=== PATIENT | male | born 1970 | race Caucasian/White ===

== ENCOUNTER → 2022-04-08 | Outpatient (CLI) | payer BC | END | disposition home or self-care (01) | LOC: LABPAT 10:05 | PROVIDERS: ATTEND Orthopaedic Surgery | DX: Z01.812 Encounter for preprocedural laboratory examination (principal); Z22.322 Carrier or suspected carrier of Methicillin resistant Staphylococcus aureus; M47.812 Spondylosis without myelopathy or radiculopathy, cervical region; M48.02 Spinal stenosis, cervical region | CPT/HCPCS: 87070 ==

== ENCOUNTER 2022-04-16 09:59 | Day surgery (SDC) | payer BC ==
[2022-04-13 10:29] VITALS: BMI 24.3
--- NOTE | 2022-04-16 08:47 | P.HPOR ---
History of Present Illness H&P Date: 04/08/22 . .T:Title: [facility] History and Physical Date of :[birth year] Age: 51 year Height: 5'10" Weight: 170 lbs BMI: 24.39 kg/m2 Occupation: [employer] VAS: 3 CHIEF COMPLAINT: pre-op recheck of planned C4-C7 ACDF DOI:Chronic DOS: N/A Duration of current treatment regiment: 8 months HISTORY: Xrays none Trauma or injury No Work-Related No Pain description aching. Location posterior posterior Patient notes that their pain radiates to bilateral upper extremities Activity Modification Yes Hand Dominance right TREATMENTS COMPLETED: 6 weeks of PT completed? Month and Year of last PT date? None recent No Chiropractor provides traction x2 weekly, with slight relief Physician recommended home exercise completed? Duration of HEP course: yes Patient has trialed the physician directed home exercise program for (with/without) relief of their symptoms. Medications yes List: Motrin 800mg. and Celebrex Alternative interventions Chiropractic: yes since June 2021 Massage therapy: No R.I.C.E: yes Brace: No Injections Yes How many? 1 Did they help? yes slight relief RFA: No SUBJECTIVE: Mr. Mccord returns to the office for a pre-operative recheck of their planned C4-C7 ACDF. Patient reports no improvements to his symptoms since the time of the last appointment. The patient continues to complain of sharp, burning cervical pain radiating into the bilateral upper extremities (left worse than right). With this he does also continue to complain of numbness and tingling about the bilateral arms. Overall the patient has seen a progressive increase in symptoms since their onset. Mr. Mccord symptoms are exacerbated with prolonged standing, ambulation, flexion/extension/twisting of the neck, along with use of the bilateral arms, due to this they notes that it is increasingly difficult for Mr. Mccord to complete many of their daily tasks. Patient is having severe sleep disturbances as well due to their ongoing pain and associated symptoms. Regarding treatments, the patient has previously trialed all abovementioned treatment modalities without relief of his symptoms. Patient denies trialing any other modalities at this time. Otherwise the patient denies any f/c/sob/cp, no bladder or bowel retention/incontinence, no perineal numbness/tingling, and ambulates independently. HISTORY: Mr. Collazo last presented to the office on 02/05/2022 for cervical pain. Patient reports an aching cervical pain ongoing for 1 year. In addition to their cervical pain, they do report that it radiates into the bilateral upper extremities, associated with numbness and tingling through the arms. Overall the patient has seen a progressive increase in symptoms since their onset. Mr. Collazo symptoms are exacerbated with turning his head and heavy lifting, due to this they notes that it is increasingly difficult for Mr. Collazo to complete many of their daily tasks. Patient is having severe sleep disturbances as well due to their ongoing pain and associated symptoms.Patient states he has seen Dr. Tejeda and received an NICO injection approximately 3 weeks ago with slight relief in the left upper extremity but now has worsened in the right upper extremity. Patient does trial chiropractic therapy which provides traction twice a week with relief since June 2021. Patient denies trialing any other modalities at this time. For their symptoms, the patient has been taking Celebrex and Motrin 800mg. Otherwise the patient denies any f/c/sob/cp, no incision concerns, no bladder or bowel retention/incontinence, no perineal numbness/tingling, and ambulates independently. Mr. Collazo was last seen on 01-14-2022 regarding his cervical pain. He states this has been ongoing for approximately one year. He describes a dull ache neck pain that radiates into the bilateral upper extremities. Patient states with certain movements he feels he gets an "electric shock" into left upper extremity. Patient does have complaint of numbness and tingling into bilateral upper extremities. Patient reports 50% of strength loss in the left upper extremity and 10% in the right upper extremity. Patient denies any fine motor function issues. He has complaint of severe sleep disturbances. Patient states he has seen Dr. Tejeda and received an NICO injection approximately 3 weeks ago with slight relief in the left upper extremity but now has worsened in the right upper extremity. Patient does trial chiropractic therapy which provides traction twice a week with relief. He states he is currently taking Celebrex with moderate relief. Patient denies any f/c/sob/cp and ambulates independently. The patients' past social, medical, family, surgical history, as well as review of systems, have been reviewed. Please refer to the Neurosurgery History and Physical form that has been scanned in to our electronic medical record system. 16 points review of systems completed and as stated in HPI, all other systems reviewed are negative. Social History: Reviewed, see appropriate section of the chart for details. P3 Social History: Smoking: current smoker P3 Smoking Amount: 1/2 PPD Alcohol: socially drinks alcohol Alcohol Amount: 10-14 drinks/wk P3 Family History: Reviewed, see appropriate section of the chart for details. P2 Past Medical History: Reviewed, see appropriate section of the chart for details. [id number] Medications: Rx: Air Protector Ref: 0 Rx: atenoloL Ref: 0 Rx: Trelegy Ellipta Ref: 0 P1 PHYSICAL EXAMINATION: General: Awake, alert, appropriate for age, in no acute distress. HEENT: No unusual neck masses around region of lateral neck triangle, thyroid, supraclavicular groove Heart: Regular rate and rhythm, normal S1, S2 and no murmur/gallop. Lungs: Clear to auscultation bilaterally with no use of accessory muscles. Extremities: Skin warm and dry without acute lesions, coloration, temperature, skin intact, no tenderness or erythema Atrophy present. Integument: Hairy patches: ABSENT Dorsal skin dimples: ABSENT Cafe au lait spots: ABSENT Surgical incisions: NONE Palpation: Please see Pain drawing on Intake sheet for further detail. Midline spinal tenderness: No E6 Cervical Tenderness: No E6 Paralumbar tenderness: No E6 Parathoracic tenderness: No E6 Buttocks tenderness: No E6 Sacroiliac Tenderness: No POSTURAL and MUSCULO-SKELETAL EVALUATION: Coronal Balance: NEUTRAL Recumbent testing: Patient is able to lay flat on back Sagittal Balance: NEUTRAL Shoulder Profile: LEVEL Pelvic Girdle: LEVEL Neck ROM: RESTRICTED Lumbar ROM: UNRESTRICTED Shoulder ROM: Symmetrical Hip ROM: Symmetrical Knee ROM: Symmetrical Hands: Normal appearance, symmetrical Feet: Normal appearance, Symmetrical VASCULAR STATUS : LEFT RIGHT Wrist Pulses INTACT INTACT Pedal Pulses (Dors. pedis & post.tibialis) INTACT INTACT Color NORMAL NORMAL Edema Absent Absent NEUROLOGIC EXAMINATION: Mental Status:Awake and alert, fully oriented, with normal attention, concentration and memory, and fluent, appropriate speech. Cranial Nerves: I: Olfactory not tested. II: Visual acuity normal, no visual field deficit noted with confrontation. III,IV: Normal pupillary reflexes & intact extraocular movements without nystagmus. V,: Intact symmetrical facial sensation. VII: Intact symmetrical facial motor movement VIII: Hearing intact. IX,X: Intact gag, swallow, & normal voice. XI: Sternocleidomastoid, trapezius function intact. XII: Tongue midline with normal movements. L'hermitte's Sign: Negative / absent Spurling'Sign: Absent bilaterally. Cubital percussion test: Absent bilaterally. Hinds-Tinel sign - Carpal region: present left side Straight Leg Raising: Absent bilaterally. 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 Sensory system (0-4, N/T) Test type RU YUNG RL LL Joint-Position 2 2 2 2 Vibration 2 2 2 2 Pain & LT sense 2 2 2 2 Dermatomal Deficit: None C4-C6 None None Gait and Functional Evaluation: Ambulatory aids: Independent Romberg's test: Intact bilaterally Toe heel walk / heel-toe walk intact while maintaining satisfactory balance? yes Squatting/straightening w/o assistance to a min of 60 degree knee flexion? yes Single leg stance: intact Trendelenburg sign negative bilaterally Hand and finger dexterity intact bilaterally? yes Disdiadochokinesis examination negative bilaterally? yes RADIOGRAPHIC STUDIES: XRay multiview taken on 01/14/22 at [facility] of Cervical Spine: cervical spinal alignment appears normal. Spondylitic changes noted C4-C6 with stenosis. Vertebral body heights are preserved. Multilevel diminished disc h eight. No acute osseous abnormalities. CT scan without contrast from 03/26/2022 from [facility] of the cervical spine: images are reviewed with patient and demonstrate severe spondylotic changes from C4-7 with disc collapse, anterior osteophyte changes as well as facet arthrosis. There is moderate stenosis with posterior osteophyte complex at C5-6. No acute fractues. Flattening of the normal cervical lordosis. MRI scan from10/25/[address] [facility] of cervical Spine: Impression: 1. moderate neurodegenerative spondylitic changes as detailed. 2. In specific, there is a multilevel neural foramina compromise as detailed. 3. Neural foraminal narrowing graded as moderate to severe bilaterally at C5- C6. Mild acquired central spinal stenosis at C5-C6. 4. Tonsillar ectopia. 5. Degenerative disc disease. Bone marrow edema involving C4. Nonspecific. Could correlate with CT imaging. IMPRESSION: It was my pleasure to have seen and examined Bossman. I reviewed the patient's clinical syndrome, physical findings, and imaging studies during the appointment today. It is my impression that the patient has a diagnosis of. 1. C4-C6 spondylosis with stenosis 2. left lower extremity radicular pain/right lower extremity radicular pain 3. mechanical neck pain 4. bilateral upper extremity radiculopathy 5. left upper extremity parasthesias I outlined the natural course history without intervention and various interventional options. PLAN: Based on my findings I suggest the following course of action: -I recommended that the patient get a CT scan of the cervical neck at [facility]. -I discussed treatment options with the patient, including operative and non- operative options, and they have elected to proceed with the following surgical procedure: cervical C5-C7 ACDF The indications, risks, benefits, and alternatives to surgery were discussed with the patient and family at length. Specifically (but not limited to) the risks of infection, stiffness, recurrence of symptoms, need for revision surgery, local numbness, neurovascular injury, and blood clots were discussed. The patient's questions were answered. The decision to proceed was made. Consent will be obtained for the procedure. -A new prescription was given for Motrin 800mg. and Celebrex. -Ambulate daily -Take medications as directed -Ice and rest for pain and swelling control. Spine Surgery Risk Review Mr. Collazo is presenting for evaluation of cervical pain. It was my pleasure to have seen and examined Mr. Collazo. In our visit today we have had a chance to go over subjective complaints, physical examination findings and treatments including the natural course history without intervention and various interventional options. The patients imaging demonstrates: XRay multiview taken on 01/14/22 at [facility] of Cervical Spine: cervical spinal alignment appears normal. Spondylitic changes noted C4-C6 with stenosis. Vertebral body heights are preserved. Multilevel diminished disc height. No acute osseous abnormalities. CT scan without contrast from 03/26/2022 from [facility] of the cervical spine: images are reviewed with patient and demonstrate severe spondylotic changes from C4-7 with disc collapse, anterior osteophyte changes as well as facet arthrosis. There is moderate stenosis with posterior osteophyte complex at C5-6. No acute fractues. Flattening of the normal cervical lordosis MRI scan from10/25/[address] [facility] of cervical Spine: Impression: 1. moderate neurodegenerative spondylitic changes as detailed. 2. In specific, there is a multilevel neural foramina compromise as detailed. 3. Neural foraminal narrowing graded as moderate to severe bilaterally at C5- C6. Mild acquired central spinal stenosis at C5-C6. 4. Tonsillar ectopia. 5. Degenerative disc disease. Bone marrow edema involving C4. Nonspecific. Could correlate with CT imaging. On physical exam, Mr. Collazo demonstrates severely restricted cervical ROM with left upper extremity radiculopathy and weakness. Patient does also demonstrate significant left upper extremity muscle wasting and atrophy. I have explained to the patient that as their condition progresses it will cause further neurological deficits and eventual paralysis. Based on the patients imaging, physical exam, and the rapid progression and disabling nature of their symptoms, at this time I recommend surgery in the form or a: C4-C7 ACDF. I discussed the risk and benefits of this procedure at length with Mr. Collazo . The patient agreed to considered pursuing the procedure abovementioned. Prior to surgery, she should follow up with her PCP (Cardio, ID, IM etc) for clearance. Questions were invited and answered, and the patient wishes to proceed as outlined below. Currently, I am recommendin.C4-C7 ACDF 2.Follow up with PCP for surgical clearance 3.Review of surgical risks and benefits as well as an educational packet on the proposed surgical procedure. Risks: All surgical procedures come with inherent risks, including those related to positioning, anesthesia, intraoperative findings, and postoperative complications. It is important to understand that surgery does not come with an y guarantee of a successful outcome as complications and adverse events are always possible. The patient was given a handout in office today discussing the surgical procedure and risks associated with the intervention, both of which were discussed with the patient. These risks include but are not limited to the following: * Experiencing same, different or even worse symptoms in back, neck, arms, or legs compared to before surgery. Requiring further surgery or other forms of treatment presently or at some time in the future at same or other levels of the intended spine surgery. On an extreme but fortunately relatively rare basis severe complication such as blindness, stroke, heart attack, temporary and/or permanent nerve injury, paralysis, coma, or may occur, sometimes without known explanation. Surgical complications may include but are not limited to risk of infection, fluid accumulation in the surgical dissection site, including a seroma or hematoma, that requires additional surgery, wound drainage, bleeding, new numbness or weakness, vision changes/loss, spinal fluid leakage, non-healing and/or infected incision, headaches, difficulty or inability to swallow, hoarseness, hemopneumothorax, pneumothorax, impotence, retrograde ejaculation, vaginal dryness; injury to nerves, spinal cord, blood vessels, lymphatics or other vital organs (i.e., bowel injury, injury to the great vessels); heterotopic bone formation; complications related to the hardware such as screws, rods, cages including misplaced hardware, device failure, instrumentation at the wrong spine level, hardware fracture/breakage, or hardware loosening; vertebral failure of the spinal column above or below the newly placed hardware; retained surgical instrumentations or devices and the need for further surgery. * Medical risks of the planned spine surgery include but are not limited to generalized Infections to the whole body or local areas outside of the surgical site (sepsis), heart attack, bleeding, anaphylaxis, meningitis, seizure, epilepsy, hearing loss, burn lopez, laceration of the head or other areas of the body, bruising, hypersensitivity of the skin, bladder over distension; allergic reaction; shoulder injury related to positioning; fat, blood and air clots to other areas of the body like heart, lungs, brain; failure of internal organs such as lungs, kidneys, liver and excessive bleeding. If blood transfusions are necessary, note that transfusions may cause intolerance reactions such as anaphylaxis or other complex reactions. Despite best efforts, the results of spine surgery might not heal in terms of bone, soft tissues such as skin, fascia, ligaments, and joints. Additionally, in order to achieve best possible results, spine surgery may be carried out beyond the initially planned levels and involve decompression, fusion including insertion of hardware at levels other than the original intended area of surgical interest change some portions of the procedure in order to ensure the best possible outcomes. With spine surgery and spinal fusion, there are different off label uses of instrumentation (devices, implants and hardware) as well as biological substances (bone morphogenic proteins, demineralized bone matrix) as well as using extra bone from allograft sources (i.e. cadaver bone) or autograft (iliac crest bone, ribs, or the spine itself). The patient has been given information about these practices and their inherent risks and benefits. [facility] is an educational center that serves as a training facility for neurosurgical and orthopedic CYBER SYSTEMS ENGINEER and Nursing students. Physician assistants are medically trained surgical providers who function in the outpatient, inpatient, and operating room setting under the direct supervision of the attending surgeon. [facility] has multiple operating rooms with single and overlapping rooms running daily. They currently function under the required guidelines as produced by the [facility] Finance Committee with regards to the overlapping rooms and will continue to comply with changes to this policy as they occur. The requirements include and are complied with as follows: (1) the critical portions of the overlapping rooms will not occur at the same time, (2) the attending physician will be physically present during the critical portions of the procedure and immediately available during the entire case, and (3) a back-up attending is designated should the primary attending not be immediately available. The patient has had a chance to review all the listed information, has been given print outs detailing this information, and has had all his/her questions answered to their satisfaction. It was my pleasure to have seen and examined Mr. Collazo. In our visit today we have had a chance to go over my understanding of our patient's current condition, the natural course history without intervention and various interventional options. Questions were invited and answered, and the patient wishes to proceed as outlined above. I have seen and examined the patient for 25 minutes and we have spent more than 50% of the time in repeat and detailed coun seling about the patient's condition, its natural course history with out and as much as can be predicted with surgery and re-review of various surgical treatment options. In conclusion, Mr. Collazo requested we proceed with the above suggested surgery and are willing to accept risks and limitations of the suggested surgery as nature of the disease process and our best attempts at treatment for the condition. Thank you again for allowing us to be part of your patient's care. Please don't hesitate to contact me if you have any further questions. Signed and authenticated by: Venkatesh Campbell DO [facility] Complex and Minimally Invasive Spine Surgery [address] [place] [address] Follow-up: 2 weeks post-op Patient Education: (Informational booklet, instructions, etc) given at today's appointment: Yes .ED:Patient Education: Y Plan at next visit: Medications Reviewed: YES In our visit today Mr. Collazo and I have had a chance to go over my understanding of the patient's current condition, the natural course history without intervention and various interventional options. Questions were invited and answered, and the patient wishes to proceed as outlined above. I will be sure to keep you updated afterMr. Collazo returns here for further follow-up. Thank you again for your referral. Please do not hesitate to contact me if you have any further questions. Signed and authenticated by: Venkatesh Ordoñez [facility] Complex and [facility]imally Invasive Spine Surgery [address] [place] [address] This message is confidential, intended only for the named recipient(s) and may contain information that is privileged or exempt from disclosure under applicable law. If you are not the intended recipient(s), you are notified that the dissemination, distribution or copying of this information is strictly prohibited. If you received this message in error, please notify the sender then delete this message. Patient verbalizes understanding of the information discussed. The above note was initiated by Venkatesh Barbosa, physician recording social and human services assistant for Dr. Venkatesh Campbell. This note has been reviewed by Dr. Campbell, who has made his personal changes and impressions for this document. CC: Dr. Salmon # SIGNED BY Venkatesh Campbell (GOO)04/15/2022 01:41PM Past Medical History Past Medical History: Asthma, Hyperlipidemia, Hypertension History of Any Multi-Drug Resistant Organisms: None Reported Past Surgical History: Orthopedic Surgery, Tonsillectomy Additional Past Surgical History / Comment(s): BILAT SHOULDER SX. RT KNEE SX. COLONOSCOPY Past Anesthesia/Blood Transfusion Reactions: No Reported Reaction Smoking Status: Current every day smoker - Past Family History Father Family Medical History: Cancer Medications and Allergies Home Medications Medication Instructions Recorded Confirmed Type Atenolol/Chlorthalidone 1 each PO DAILY 04/13/22 04/13/22 History [Atenolol-Chlorthalidone 100-25] Atorvastatin [Lipitor] 20 mg PO DAILY 04/13/22 04/13/22 History Fluticasone/Umeclidin/Vilanter 1 inhalation INHALATION DAILY 04/13/22 04/13/22 History [Trelegy Ellipta 100-62.5-25] Allergies Allergy/AdvReac Type Severity Reaction Status Date / Time No Known Allergies Allergy Verified 04/13/22 10:24 Physical Examination Osteopathic Statement: *. No significant issues noted on an osteopathic structural exam other than those noted in the History and Physical/Consult.
[~2022-04-16 09:59] MED LIST: ACETAMINOPHEN TAB 500 MG TAB PO PRN; GABAPENTIN 300 MG CAP PO PRN; ONDANSETRON 4 MG/2 ML VIAL IVP PRN; TRANEXAMIC ACID IN NACL,ISO-OS 1,000 MG in SALINE 1 100ML.BAG IVPB PRN
[2022-04-16] MEDS ORDERED: LIDOCAINE 1% (10MG/ML) FOR IV START INTRADERMA PRN (10:10)
[2022-04-16] MEDS ORDERED: DEXAMETHASONE SOD PHOSPHATE 4 MG/ML 1 ML VIAL IV ONE (10:10)
[2022-04-16] MEDS ORDERED: ONDANSETRON 4 MG/2 ML VIAL IVP ONE (10:10)
[2022-04-16] MEDS ORDERED: MIDAZOLAM 2 MG/2 ML VIAL IV PRN (10:10)
[2022-04-16] MEDS ORDERED: HYDROmorphone 0.5 MG/0.5 ML SYRINGE IVP PRN ×2 (10:10→15:31)
[2022-04-16 10:33] VITALS: RESP 16
[2022-04-16] MEDS: LACTATED RINGERS 1,000 ML IV SCH (10:50)
[2022-04-16] MEDS ORDERED: TRANEXAMIC ACID IN NACL,ISO-OS 1,000 MG/100 ML BAG ONE (12:37)
[2022-04-16] MEDS ORDERED: KETAMINE 10 MG/ML 20 ML VIAL ONE (12:37)
[2022-04-16] MEDS ORDERED: MIDAZOLAM 2 MG/2 ML VIAL ONE (12:37)
[2022-04-16] MEDS ORDERED: fentaNYL (PF) 50 MCG/ML 2 ML AMP ONE (12:37)
[2022-04-16] MEDS ORDERED: PROPOFOL 10 MG/ML 20 ML VIAL IV ONE (12:37)
[2022-04-16] MEDS ORDERED: LIDOCAINE 2% INJ 20 MG/ML (2 ML VIAL) ONE (12:37)
[2022-04-16] MEDS ORDERED: SUCCINYLCHOLINE CHLORIDE 200 MG/10 ML VIAL IV ONE (12:37)
[2022-04-16] MEDS ORDERED: GELATIN SPONGE,ABSORB (LARGE) 1 EACH SPONGE MISCELLANE ONE (13:22)
[2022-04-16] MEDS ORDERED: THROMBIN (BOVINE) 5,000 UNIT VIAL MISCELLANE ONE (13:22)
[2022-04-16] MEDS ORDERED: LACTATED RINGERS 1,000 ML IV ONE ×3 (14:53→15:44)
[2022-04-16] MEDS ORDERED: ONDANSETRON 4 MG/2 ML VIAL IVP PRN (15:31)
[2022-04-16] MEDS ORDERED: bisacodyL 10 MG SUPP RECTAL PRN (15:31)
[2022-04-16] MEDS ORDERED: MAGNESIUM HYDROXIDE 2,400 MG/10 ML CUP PO PRN (15:31)
[2022-04-16] MEDS ORDERED: HYDROmorphone 1 MG/ML 1 ML SYRINGE IVP PRN (15:31)
[2022-04-16] MEDS ORDERED: SENNOSIDES-DOCUSATE SODIUM 1 EACH TAB PO PRN (15:31)
--- NOTE | 2022-04-16 15:38 | XR ---
Crosstable lateral cervical spine History: CERVICAL FUSION Localization device is at the C4 level inferior endplate
[2022-04-16] MEDS ORDERED: hydrALAZINE HCL 20 MG/ML 1 ML VIAL IVP ONE (16:32)
--- NOTE | 2022-04-16 17:06 | FL ---
EXAMINATION TYPE: FL guidance operating room DATE OF EXAM: 04/16/2022 FLUOROSCOPY Fluoroscopy time of 30 seconds was used during cervical fusion. 7 image/s document/s the procedure.
[2022-04-16] MEDS ORDERED: ACETAMINOPHEN TAB 325 MG TAB PO PRN (18:00)
[2022-04-16] MEDS: HYDROcodone/APAP 10-325MG 1 EACH TAB PO SCH ×3 (18:09→23:56)
[2022-04-16] MEDS: HYDROcodone/APAP 5-325MG 1 EACH TAB PO SCH ×3 (18:09→23:56)
[2022-04-16] MEDS: CYCLOBENZAPRINE 10 MG TAB PO SCH ×2 (18:19→23:56)
[2022-04-16] MEDS: GABAPENTIN 300 MG CAP PO SCH ×2 (18:19→23:56)
[2022-04-16] MEDS: 0.9% NACL WITH KCL 20 MEQ/L 1,000 ML IV SCH (18:19)
[2022-04-17] MEDS ORDERED: BENZOCAINE/MENTHOL LOZENG 1 EACH LOZENGE MUCOUS MEM PRN (02:58)
--- NOTE | 2022-04-17 03:18 | P.CONS ---
History of Present Illness - Reason for Consult Consult date: 04/16/22 post op medical care Requesting physician: Venkatesh Campbell - Chief Complaint scheduled for C-spine surgery - History of Present Illness 51 year old male with hyperlipidemia , hypertension patient presented for scheduled C spine surgery , due to progressive disabling pain with radiculopathy refractory to conservative management, he tolerated procedure well, no observed immediate post op complication, pain well controlled, patient tolerating PO intake , denies chest pain , nausea vomiting, abd pain , SOB. patient admits to daily smoking and social alcohol post operatively , he denies any new onset numbness or weakness in his upper or lower extremity Review of Systems Pertinent positives as noted in HPI. All other systems were reviewed and are negative Past Medical History Past Medical History: Asthma, Hyperlipidemia, Hypertension History of Any Multi-Drug Resistant Organisms: None Reported Past Surgical History: Orthopedic Surgery, Tonsillectomy Additional Past Surgical History / Comment(s): BILAT SHOULDER SX. RT KNEE SX. COLONOSCOPY Past Anesthesia/Blood Transfusion Reactions: No Reported Reaction Smoking Status: Current every day smoker - Past Family History Father Family Medical History: Cancer Medications and Allergies Home Medications Medication Instructions Recorded Confirmed Type Atenolol/Chlorthalidone 1 each PO DAILY 04/13/22 04/16/22 History [Atenolol-Chlorthalidone 100-25] Atorvastatin [Lipitor] 20 mg PO DAILY 04/13/22 04/16/22 History Fluticasone/Umeclidin/Vilanter 1 inhalation INHALATION DAILY 04/13/22 04/16/22 History [Trelegy Ellipta 100-62.5-25] Allergies Allergy/AdvReac Type Severity Reaction Status Date / Time No Known Allergies Allergy Verified 04/16/22 10:27 Physical Exam Vitals: Vital Signs Temp Pulse Pulse Resp BP Pulse Ox 04/16/22 22:54 90 125/73 04/16/22 19:45 16 04/16/22 19:19 97 133/91 04/16/22 18:49 87 147/87 97 04/16/22 18:43 98.1 F 92 16 150/78 96 04/16/22 18:19 150/78 92 L 04/16/22 18:03 89 132/78 93 L 04/16/22 17:48 89 108/56 93 L 04/16/22 17:33 89 127/81 94 L 04/16/22 17:19 91 129/80 93 L 04/16/22 16:57 90 16 138/80 96 04/16/22 16:42 87 16 146/90 95 04/16/22 16:27 78 16 159/104 100 04/16/22 16:12 84 16 143/85 97 04/16/22 15:57 78 16 110/68 93 L 04/16/22 15:42 97.4 F L 77 16 120/76 99 04/16/22 10:30 97.4 F L 80 16 124/94 97 Intake and Output 04/16/22 04/16/22 04/17/22 14:59 22:59 06:59 Intake Total 2049 1240 Output Total 75 Balance 2049 116 Intake: IV 2049 1000 Oral 240 Output: Estimated Blood Loss 75 Other: Voiding Method Indwelling Catheter Weight 76.3 kg Constitutional: No acute distress, conversant, pleasant Eyes: Anicteric sclerae, moist conjunctiva, Pupils equal round reactive to light ENMT: NC/AT Oropharynx clear, no erythema, or exudates Neck: cervical neck collar in place drains in place in the cervical spine surgical site Lungs: Clear to auscultation Clear to percussion Normal respiratory effort, no accessory muscle use Cardiovascular: Heart regular in rate and rhythm, No murmurs, gallops, or rubs No peripheral edema Abdominal: Soft Nontender, no guarding, rebound or rigidity Abdomen moving with respiration Normoactive bowel sounds Skin: Normal temperature, tone, texture, turgor Extremities: No digital cyanosis No clubbing Pedal pulses intact and symmetrical Radial pulses intact and symmetrical No calf tenderness Psychiatric: Alert and oriented to person, place and time Neuro Muscles Strength 5/5 in all 4 extremities Sensation to light touch grossly present throughout Cranial nerves II-XII grossly intact Lymphatics: no palpable cervical or supraclavicular , lymph nodes Assessment and Plan Assessment: hypertension , controlled continue with atenolol hyperlipidemia continue atorvastatin tobacco smoking counseled to quit smoking nicotine replacement therapy C spine surgery POD zero management per ortho full code DVT PPX SCDs follow up AM labs
[2022-04-17] MEDS: HYDROcodone/APAP 5-325MG 1 EACH TAB PO SCH ×3 (03:42→11:24)
[2022-04-17] MEDS: HYDROcodone/APAP 10-325MG 1 EACH TAB PO SCH ×2 (03:42→06:28)
[2022-04-17] MEDS: 0.9% NACL WITH KCL 20 MEQ/L 1,000 ML IV SCH (05:29)
[2022-04-17 05:42] VITALS: BP 158/98; PULSE 81; TEMP 97.7
[2022-04-17] MEDS: CYCLOBENZAPRINE 10 MG TAB PO SCH (06:32)
[2022-04-17] MEDS: GABAPENTIN 300 MG CAP PO SCH (06:32)
[2022-04-17] MEDS: IPRATROPIUM 0.5 MG/2.5 ML NEBU INHALATION SCH ×2 (07:54→11:28)
[2022-04-17] MEDS ORDERED: SYMBICORT 80-4.5 MCG INHALER INHALATION SCH (08:00)
--- NOTE | 2022-04-17 08:53 | P.PN ---
Subjective Progress Note Date: 04/17/22 Principal diagnosis: Cervical spondylosis Cervical stenosis Patient seen and examined at bedside. Patient was resting in bed with soft collar intact. Surgical dressing was changed and NORMAN drain removed. Surgical incision was well approximated with glue intact. Patient reports pain has been managed on current regimen. He denies any numbness or tingling to bilateral upper extremities since procedure. Overall patient is very happy with plan of care. Patient will be discharged home with home care. He currently denies any fever/chills, nausea/vomiting, or chest pain. Objective - Vital Signs Vital signs: Vital Signs Temp 97.7 F 04/17/22 05:00 Pulse 81 04/17/22 05:00 Resp 16 04/17/22 05:00 BP 158/98 04/17/22 05:00 Pulse Ox 94 L 04/17/22 05:00 FiO2 Intake & Output 04/16/22 04/17/22 04/17/22 18:59 06:59 18:59 Intake Total 3050 240 Output Total 75 2215 Balance 2975 -1975 Weight 76.3 kg Intake: IV 3050 Oral 240 Output: Drainage 15 Anterior Neck 15 Urine 2200 Estimated Blood Loss 75 Other: Voiding Method Indwelling Catheter - Exam Physical Examination General: The patient is awake and alert, in no acute distress Skin: Skin is warm and dry with no obvious rashes or lesions. Hairy patches absent, no dorsal skin dimples, no cafe au lait spots. Surgical Incision to anterior cervical region, dressing CDI. Eye: Pupils are equal, round and reactive to light, extra-ocular movements are intact; there is normal conjunctiva bilaterally. Neck: The neck is supple, there is slight tenderness and limited ROM r/t surgical procedure. Cardiovascular: There is a regular rate and rhythm. No murmur, rub or gallop is appreciated. Respiratory: Lungs are clear to auscultation, respirations are non-labored, breath sounds are equal. Gastrointestinal: Soft, non-distended, non-tender abdomen. Back: There is no tenderness to palpation in the midline, paralumbar, parathoracic or buttocks region. There is no obvious deformity . Musculoskeletal: ROM limited secondary to pain and stiffness from surgical proce dure. Muscle strength in all major muscle groups of bilateral upper extremities 4/5, bilateral lower extremities 5/5. Neurological: CN 2-12 intact. There are no obvious motor or sensory deficits. Movement and coordination equal and intact. Sensory exam to light touch intact C5-T1 and intact from L2-S1. Reflexes 2/4 in bilateral upper and lower extremities. Negative Hoffmans, babinski, and clonus signs. Psychiatric: Cooperative, appropriate mood & affect, normal judgment. Assessment and Plan Assessment: Postop day 1: C4-C7 ACDF Plan: Plan: -Appreciate rn lactation consultant and team management. -Activity: Ambulate QID, OOB all meals, up and about, limit lifting bending tw isting to less than 5 lbs. No overhead pushing or pulling. -Daily PT/OT, increase ambulation strength and balance. -Soft collar when up and about, not needed in bed or chair -Pain control: Adequate at this time -Meds: reviewed -GI ppx: senna, Miralax -DC dunbar when up and about, bedside commode if needed -DVT PPX: OK to restart Heparin tonight -Hygiene: Shower today. Maintain dressing clean and dry. -Encourage IS 10x/hr -Dispo: Anticipate discharge home today with homecare *I reviewed and discussed this case with my attending Dr. Campbell, whom has reviewed this chart and films and is in agreement with assessment and plan of care as outlined above. I have personally seen and examined the patient, performed the documentation and the assessment and plan as written. Number of minutes spent on the visit: 20m.
--- NOTE | 2022-04-17 08:54 | P.DS ---
Providers Date of admission: 04/16/2022 Expected date of discharge: 04/17/22 Attending physician: Venkatesh Campbell DO Consults: 04/16/22 15:31 Consult Physician Routine Consulting Provider: Irais Chapa Consult Reason/Comments: medical management Do you want consulting provider notified?: Yes Primary care physician: [facility] Course: Hospital Course: The patient was evaluated preoperatively and found to have the diagnosis of cervical spondylosis with stenosis. They underwent appropriate preoperative care and were willing to undergo the intended procedure. They underwent a successful C4-C7 ACDF, were recovered appropriately and sent to the floor. While on the floor they worked with physical therapy, occupational therapy and nursing to enhance their recovery experience. Their pain was well controlled through their stay and they were started on appropriate medications, DVT ppx modalities, activity and dietary needs. Daily labs were monitored closely, and transfusions were only used when necessary. Medicine as well as other consulting services have made their input and have helped with our team approach and multidisciplinary care. PT milestones have been met and passed and they have made the recommendation of home with home care for this patient and treating providers agree with this care path. The patient will be discharged home with appropriate medications, instructions and follow-up information and in stable condition. Patient Condition at Discharge: Good Plan - Discharge Summary Discharge Rx Participant: Yes New Discharge Prescriptions: New cefaDROXiL [Duricef] 500 mg PO Q12HR 3 Days #6 cap Cyclobenzaprine [Flexeril] 10 mg PO TID #90 tab Gabapentin 300 mg PO TID 3 Days #90 cap HYDROcodone/APAP 5-325MG [Atkins 5-325] 1 - 2 tab PO Q6HR PRN #56 tab PRN Reason: Pain No Action Fluticasone/Umeclidin/Vilanter [Trelegy Ellipta 100-62.5-25] 1 inhalation INHALATION DAILY Atorvastatin [Lipitor] 20 mg PO DAILY Atenolol/Chlorthalidone [Atenolol-Chlorthalidone 100-25] 1 each PO DAILY Discharge Medication List Atenolol/Chlorthalidone [Atenolol-Chlorthalidone 100-25] 1 each PO DAILY 04/13/22 [History] Atorvastatin [Lipitor] 20 mg PO DAILY 04/13/22 [History] Fluticasone/Umeclidin/Vilanter [Trelegy Ellipta 100-62.5-25] 1 inhalation INHALATION DAILY 04/13/22 [History] Cyclobenzaprine [Flexeril] 10 mg PO TID #90 tab 04/17/22 [Rx] Gabapentin 300 mg PO TID 3 Days #90 cap 04/17/22 [Rx] HYDROcodone/APAP 5-325MG [Atkins 5-325] 1 - 2 tab PO Q6HR PRN #56 tab 04/17/22 [Rx] cefaDROXiL [Duricef] 500 mg PO Q12HR 3 Days #6 cap 04/17/22 [Rx] Follow up Appointment(s)/Referral(s): Venkatesh Campbell DO [Doctor of Osteopathic Medicine] - 2 Weeks Activity/Diet/Wound Care/Special Instructions: Spine Discharge and Recovery Instructions Date of Surgery: 04/16/2022 Diagnosis: Cervical spondylosis, cervical stenosis Procedure: C4-C7 ACDF Medications: See medication list All medication refills should be obtained through your primary care doctor or your clinic spine surgeon. Please discuss prescription refills at your follow up appointment. Do not call the hospital for medication refills. Dressing: Leave your dressing in place for a total of 5 days post operatively. Then you may remove your dressing and leave open to air. Keep the area clean and if not able to keep area clean, then cover with sterile gauze and tape. Showering: You may shower 3 days after your procedure allowing soap and water to run over incision. Do not scrub. Do not soak. Blot dry. Follow up: Please confirm a follow up appointment with your surgeon 3 weeks post operatively. Please make an appointment to follow up with your PCP in 1-2 weeks after surgery for evaluation 3 phase, 3-week plan POST OP WEEKS 1-3 1. Lifting/carrying/pushing/pulling limited to less than 5 pounds. 2. Do not sit for longer than 15 minutes at one time. Get up and walk around. Prolonged sitting is NOT advised. If you lay down, see if you can tolerate laying down on you front (belly side) 3. Walk for periods of 15 minutes = 1 mile but no longer; do it multiple times times each day. 4. Ice your low back after activity. POST OP WEEKS 3-6 1. Lifting limited to less than 20 pounds. 2. Do not sit for longer than 30 minutes at a time. Frequently change positions. Use a sit-to stand workstation or take frequent breaks from sitting if you have returned to work. 3. Walk for 30 minutes each day. If possible, do these three or more times a day POST OP WEEKS 6+ At your 6-week appointment we will give you a physical therapy referral to focus on a core stabilization and strengthening program. You should also work on leg & buttock strengthening, hamstring & quadriceps stretching, and continue a low impact aerobic activity program such as swimming, walking, or riding a stationary bicycle. During the initial 6 weeks after your surgery, you are at the highest risk of re-injuring your spine. You should generally avoid BLTs (bending, lifting and twisting combination motions) and follow the above guidelines to reduce the chance of reinjury. You can anticipate post op appointments in our office at approximately 3 weeks and 6 weeks after your surgery. INCISION CARE: If your incision is not draining you do NOT need to cover it with a dressing. Keep your incision clean, dry and intact. In most cases, we apply skin glue, sergei or sutures to the incision at the time of surgery. This will be like a crust or have the appearance of a scab and will fall off in time on its own. The stitches or sergei need to be removed at 3 weeks post op appointment. You may begin to shower 3 days after surgery (this allows the glue to gant well). However, please avoid scrubbing the incision site or peeling off any of the skin glue. This will ensure optimal healing of your incision. Also, during this time avoid soaking the incision area in water - this includes swimming pools, hot tubs or baths. No ointments, lotions or oils on the incision until your surgeon allows. Leave sergei, sutures or glue in place. Neurological dysfunction that comes on suddenly can also be a sign of a stroke. Below some common symptoms of a stroke are listed: B - balance difficulty such as sudden onset walking or leaning to one side - NEW E - eye problem such as sudden double vision or trouble seeing on one side - NEW F - Facial weakness or numbness on one side - NEW A - Arm or leg weakness or numbness on one side - NEW S - Slurred speech or difficulty with word finding - NEW T - Time is BRAIN! Call 911 as soon as you recognize these symptoms Diet: Consume a regular diet rich in vegetables and lean protein such as chicken or fish. You should consume in a ratio of approximately 20% fats|40% carbohydrates|40%protein. Vegetables, sweet potatoes, brown rice or quinoa are examples of good carbohydrates. Chips, white bread, cookies and sweets/sugar are examples of bad carbohydrates. Limit your bad carbs, go wild with good carbs. "Life's Simple 7" Guidelines as per [place] [employer] These will help you reclaim your life after surgery and coater helper in your recovery, keeping in mind your restrictions. (1) Get Active. Physical activity can help people lose weight, control high blood pressure and cholesterol, feel emotionally better, and sleep better. (2) Control Cholesterol. Avoid a diet high in saturated fat, trans fat, & cholesterol. Limit whole milk & cream, ice cream, butter, egg yolks, processed meats (like sausage and hot dogs), and fatty meats. Choose healthy foods that are low in saturated fat, trans fat and cholesterol which include: Fruits and vegetables, fiber rich grain products (like whole grain pasta and brown rice), lean meat such as chicken, fish, nuts, seeds, and legumes. (3) Eat Better. Eat small portions. Shop at the grocery with a list and do not stray from it. Tips for a healthy diet include: Limit sodium intake to less than 1500mg daily, avoid prepackaged, processed, and fast foods, choose a diet rich in fruits, vegetables, and whole grain, high fiber foods, and limit saturated & cholesterol in your diet. (4) Manage Blood Pressure. If you have high blood pressure, you should have a cuff at home so that you can check your blood pressure regularly. Be sure you have a good cuff. An arm one is generally better than a wrist one. Bring the cuff to a doctor's appointment to validate that the measurements that your cuff are taking are accurate. Take your blood pressure twice daily when you are sitting down and relaxing. Record the numbers in a log and bring this log with you to your doctors' appointments. (5) Lose Weight if your BMI is above 25. A healthy BMI is between 19-25. To calculate Your BMI, you may use a Standard BMI Calculator on the NIH BMI website: <www.nhlbi.nih.gov/guidelines/obesity/BMI/bmicalc.htm>. Weigh oneself daily. If you are overweight, set a goal to lose weight. A pound a week loss if needed is a good target. (6) Reduce Blood Sugar. Limit foods and liquids with "added sugars." (Added sugars include sucrose, fructose, glucose, maltose, dextrose, high fructose corn syrup, corn syrup, concentrated fruit juice and honey). (7) Stop Smoking. If you smoke, quitting smoking is one of the best things that you can do for your health. Smoking increases your risk of heart attack, stroke, and peripheral vascular disease, which is a build-up of plaque in your arteries. Please discard all the cigarettes and lighters in your house. Have a plan for what you will do when you have the urge to smoke. Direct and second- hand smoke shortens your life as well as the lives of your family, friends and others around you. For your health and the health of those around you, please consider quitting! Proper Bending Body Mechanics: Maintain a wide stance with one foot slightly in front of the other. Keep your back straight. Bend utilizing the strength in your hips and knees. Do not bend at the waist. Maintain the lifted object at your waist-level close to your body. Avoid lifting weight that causes immediately pain or pain anywhere in the body afterwards. Smoking/Nicotine If there was ever one thing that you could do to increase your overall health, decrease your risk of cardiovascular problems by about 39% the second you make the choice, it is to STOP SMOKING. Your body's most instant gratification is the second you stop smoking. We have all heard the studies, read the articles but it is true, smoking is extremely bad for your overall health, and moreover it is detrimental to your bone health. Nicotine, IN ANY FORM, kills bone cells, prevents your body from healing fractures, and significantly prolongs healing after surgery. In spine surgery specifically, it increases your risk of not healing your bones to create a fusion and increases your risk of having a revision surgery due to this up to 60%. I know it is hard. I know it feels impossible. But there are ways. Take control of your life. We are here to help you through it. And when you are r gladis, ask us and we can direct you to help if you desire. Use the START Plan to Quit Smoking (please visit the Helpguide.org website listed below for more information): S = Set a quit date. Choose a date within the next 2 weeks, so you have enough time to prepare without losing your motivation to quit. If you mainly smoke at work, quit on the weekend, so you have a few days to adjust to the change. T = Tell family, friends, and co-workers that you plan to quit. Let your friends and family in on your plan to quit smoking and tell them you need their support and encouragement to stop. Look for a quit ene who wants to stop smoking as well. You can help each other get through the rough times. A = Anticipate and plan for the challenges you'll face while quitting. Most people who begin smoking again do so within the first 3 months. You can help yourself make it through by preparing ahead for common challenges, such as nicotine withdrawal and cigarette cravings. R = Remove cigarettes and other tobacco products from your home, car, and work. Throw away all your cigarettes (no emergency pack!), lighters, ashtrays, and matches. Wash your clothes and freshen up anything that smells like smoke. Shampoo your car, clean your drapes and carpet, and steam your furniture. T = Talk to your doctor about getting help to quit. Your doctor can prescribe medication to help with withdrawal and suggest other alternatives. If you can't see a doctor, you can get many products over the counter at your local pharmacy or grocery store, including the nicotine patch, nicotine lozenges, and nicotine gum. Resources for Quitting Smoking: <https://www.[place].gov/documents/[facility]/Quit_Tobacco_Resources_for_patients_313 480_7.pdf> Supplementation: Take recommended dosages of Vitamin D and Calcium to help fortify your bones and help them to heal. See your health maintenance packet for dosages and recommended levels. DVT/VTE prophylaxis: You will be given compression stockings from the hospital. Wear these daily for the first two weeks after surgery. You may take them off at night. You may be prescribed a medication to help thin your blood. Take this as directed. If you are not prescribed this medication, early and frequent ambulation has been shown to be the best prophylaxis to deep vein thrombosis and sequelae related to this event. Discharge Disposition: HOME WITH HOME HEALTH SERVICES
[2022-04-17] MEDS ORDERED: CHLORTHALIDONE 25 MG TAB PO SCH (09:00)
[2022-04-17] MEDS ORDERED: atenoloL 50 MG TAB PO SCH (09:00)
[2022-04-17] MEDS ORDERED: ATORVASTATIN 20 MG TAB PO SCH (09:00)
[2022-04-17 09:27] LABS: HCT 42.3 % (39.6-50.0); HGB 14.7 g/dL (13.0-17.0); MCH 31.4 pg (27.0-32.0); MCHC 34.8 g/dL (32.0-37.0); MCV 90.4 fL (80.0-97.0); Mean Platelet Volume 11.1 fL (9.5-12.2); NRBC Per 100 WBC 0 /100 WBCS (0.0-0.0); Platelet Count 226 X 10*3/uL (140-440); RBC 4.68 X 10*6/uL (4.40-5.60); RDW 12.5 % (11.5-14.5); WBC 15.47 X 10*3/uL (4.50-10.00)
[2022-04-17 09:49] LABS: African American GFR (CKD) 119.9 (60.0-200.0); Anion Gap 10.5 mmol/L (10.00-18.00); BUN/Creat Ratio 16.38 Ratio (12.00-20.00); Blood Urea Nitrogen 13.1 mg/dL (9.0-27.0); Carbon Dioxide 26.5 mmol/L (20.0-27.5); Non-African American GFR(CKD) 103.4 (60.0-200.0); Potassium 3.7 mmol/L (3.5-5.5)
[2022-04-17 10:16] LABS: Basophils # (A) 0.05 X 10*3/uL (0.00-0.10); Basophils % (A) 0.3 %; Eosinophils # (A) 0.02 X 10*3/uL (0.04-0.35); Eosinophils % (A) 0.1 %; Immature Grans, Automated 0.5 %; Lymphocytes # (A) 2.67 X 10*3/uL (0.90-5.00); Lymphocytes % (A) 17.3 %; Monocytes # (A) 1.84 X 10*3/uL (0.20-1.00); Monocytes % (A) 11.9 %; Neutrophils # (A) 10.82 X 10*3/uL (1.80-7.70); Neutrophils % (A) 69.9 %
[2022-04-17] MEDS: LACTATED RINGERS 1,000 ML IV SCH (10:24)
--- NOTE | 2022-04-17 12:36 | CT ---
EXAMINATION TYPE: CT cervical spine wo con DATE OF EXAM: 04/17/2022 COMPARISON: 01/14/2022, 10/25/2021 HISTORY: 51-year-old male post op assessment of the c-spine TECHNIQUE: Contiguous axial scanning of the cervical spine without IV contrast. Coronal and sagittal reconstructions performed. CT DLP: 426.1 mGycm Automated exposure control for dose reduction was used. FINDINGS: Interval placement of C4-C7 ACDF. Alignment is maintained. Orthopedic hardware appears uncomplicated. There is a small 3 mm fragment of bone posteriorly along the ventral spinal canal opposite the C6 sup erior endplate this could potentially have some residual encroachment on the spinal canal. Some uncovertebral joint spurring remains. At C4-C5, this continues to mild left neuroforaminal narrowing. At C5-C6, disc injuries to mild right neuroforaminal narrowing. At C6-C7, this continues to moderate left neuroforaminal stenosis. Residual anterior soft tissue air and edema relating to the patient's recent operation. Associated pr evertebral soft tissue swelling and retropharyngeal effusion. Underlying emphysematous change in the upper lungs. IMPRESSION: 1. INTERVAL PLACEMENT OF C4-C7 ACDF. TINY 3 MM FRAGMENT OF BONE POSTERIORLY ALONG THE VENTRAL SPINAL CANAL OPPOSITE THE C6 SUPERIOR ENDPLATE, LIKELY TINY ENDPLATE SPUR FRAGMENT. THIS COULD POTENTIALLY H AVE SOME RESIDUAL ENCROACHMENT ONTO THE SPINAL CANAL. CLINICALLY CORRELATE. 2. RESIDUAL UNCOVERTEBRAL JOINT DEGENERATIVE CHANGE. THIS CONTRIBUTES TO A MODERATE LEFT NEUROFORAMIN AL STENOSIS. 3. RESIDUAL ANTERIOR POSTSURGICAL SOFT TISSUE CHANGES AND RETROPHARYNGEAL EFFUSION.
--- NOTE | 2022-04-17 12:53 | P.PN ---
Subjective Progress Note Date: 04/17/22 Hospital course: Patient is a very pleasant 51-year-old male with a past medical history of hypertension, hyperlipidemia, COPD, and cervical spondylosis with stenosis with lower extremity radiculopathy. He is currently admitted under orthospine surgical team status post C4 through C7 ACDF. We were consulted for continued medical management throughout patient's hospitalization. Physical exam: Patient seen and fully evaluated at bedside this morning. Patient reports postoperative pain is controlled and states that he is ready for discharge. Patient ambulating/pacing back and forth in room. He denies having any complaints including headache, lightheadedness, dizziness, chest pain, palpitations, shortness of breath or experiencing any numbness/tingling/weakness in his extremities. Patient has soft c-collar in place. Morning labs reviewed revealing leukocytosis with WBC count of 15.47 believed to be reactive and otherwise unremarkable. Patient is medically stable for discharge home once cleared by primary admitting orthopedic surgery team. Vital signs reviewed and stable. General: Nontoxic, no distress and appears stated age. Derm: Skin warm and dry, normal coloration for ethnicity. Head: Atraumatic, normocephalic and symmetric. Soft c-collar in place. Eyes: EOMs intact, no lid lag, and anicteric sclera Mouth: no lip lesions, mucus membranes moist Cardiovascular: regular rate and rhythm with normal S1S2, no murmur, positive posterior tibial pulses bilaterally, and cap refill < 2 seconds. Lungs: Respirations even, regular, and unlabored on room air. Lungs CTA bilaterally, no rhonchi, no rales, no wheezing, and no accessory muscle usage. Abdominal: soft, nontender to palpation, no guarding, no appreciable organomegaly Ext: ROM intact. No gross muscle atrophy, no edema, no contractures Neuro: Speech clear, face symmetrical and CN II-XII grossly intact with no noted focal neuro deficits Psych: Alert and oriented to person, place, time, and situation. Appropriate and pleasant affect. Assessment and Plan of Care: Status post C4 through C7 ACDF -Management per primary admitting orthospine surgical team including DVT prophylaxis, pain management, dressing/wound care, and PT/OT. Leukocytosis -Likely reactive this patient showing no signs of infection. Hypertension -Monitor vital signs and continue daily medication regimen with ateno lol/chlorthalidone. Hyperlipidemia -Continue daily medication regimen with atorvastatin. Asthma/COPD with continued nicotine dependence -Continue Ellipta and strongly recommend smoking cessation Thank you for allowing us to participate in the care of this pleasant patient. Do not hesitate to contact us with questions. Someone can be reached from the [facility] hospitalist group all hours of the day at [phone] or via [employer] I reviewed the documentation as provided by the DORY above, who is the original author of this note. I agree with the documented assessment and plan, with the following changes: none Objective - Vital Signs Vital signs: Vital Signs Temp 97.7 F 04/17/22 05:00 Pulse 81 04/17/22 05:00 Resp 16 04/17/22 05:00 BP 158/98 04/17/22 05:00 Pulse Ox 94 L 04/17/22 05:00 FiO2 Intake & Output 04/16/22 04/17/22 04/17/22 18:59 06:59 18:59 Intake Total 3050 240 Output Total 75 2215 Balance 2975 -1975 Weight 76.3 kg Intake: IV 3050 Oral 240 Output: Drainage 15 Anterior Neck 15 Urine 2200 Estimated Blood Loss 75 Other: Voiding Method Indwelling Catheter - Labs CBC & Chem 7: 04/17/22 06:36 04/17/22 06:36
--- NOTE | 2022-04-20 08:27 | P.OP ---
Date of Procedure: 04/16/22 Preoperative Diagnosis: 1. C4-7 spondylosis with stenosis 2. UE radiculopathy 3. UE weakness 4. Mechanical neck pain Postoperative Diagnosis: 1. C4-7 spondylosis with stenosis 2. UE radiculopathy 3. UE weakness 4. Mechanical neck pain Procedure(s) Performed: 1. C4-5, C5-6, C6-7 anterior discectomy and fusion (14525, [id number]) 2. Insertion of biomechanical device, interbody, C4-5, C5-6 and C6-7 ([id number]) 3. Application of non integrated anterior plate C4-7 ([id number]) Use of IONM Use of microscope Implants: -Globus hedron interbody -Globus anterior plate iFactor Autograft Allograft, DBM Anesthesia: GETA Surgeon: Venkatesh [employer] Dean #1: Raheel Leal Estimated Blood Loss (ml): 75 IV fluids (ml): 1,200 Urine output (ml): 350 Pathology: none sent Condition: stable Disposition: PACU Indications for Procedure: Mr. Collazo is presenting for evaluation of cervical pain. It was my pleasure to have seen and examined Mr. Collazo. In our visit today we have had a chance to go over subjective complaints, physical examination findings and treatments including the natural course history without intervention and various interventional options. The patients imaging demonstrates: XRay multiview taken on 01/14/22 at [facility] of Cervical Spine: cervical spinal alignment appears normal. Spondylitic changes noted C4-C6 with stenosis. Vertebral body heights are preserved. Multilevel diminished disc height. No acute osseous abnormalities. CT scan without contrast from 03/26/2022 from [facility] of the cervical spine: images are reviewed with patient and demonstrate severe spondylotic changes from C4-7 with disc collapse, anterior osteophyte changes as well as facet arthrosis. There is moderate stenosis with posterior osteophyte complex at C5-6. No acute fractues. Flattening of the normal cervical lordosis MRI scan from10/25/21 obtained at [facility] of cervical Spine: Impression: 1. moderate neurodegenerative spondylitic changes as detailed. 2. In specific, there is a multilevel neural foramina compromise as detailed. 3. Neural foraminal narrowing graded as moderate to severe bilaterally at C5- C6. Mild acquired central spinal stenosis at C5-C6. 4. Tonsillar ectopia. 5. Degenerative disc disease. Bone marrow edema involving C4. Nonspecific. Could correlate with CT imaging. On physical exam, Mr. Collazo demonstrates severely restricted cervical ROM with left upper extremity radiculopathy and weakness. Patient does also demonstrate significant left upper extremity muscle wasting and atrophy. I have explained to the patient that as their condition progresses it will cause further neurological deficits and eventual paralysis. Based on the patients imaging, physical exam, and the rapid progression and disabling nature of their symptoms, at this time I recommend surgery in the form or a: C4-C7 ACDF. I discussed the risk and benefits of this procedure at length with Mr. Collazo. The patient agreed to considered pursuing the procedure abovementioned. Prior to surgery, she should follow up with her PCP (Cardio, ID, IM etc) for clearance. Questions were invited and answered, and the patient wishes to proceed as outlined below. Currently, I am recommendin.C4-C7 ACDF Description of Procedure: The patient was seen and examined in the preoperative area. All preoperative protocols were followed. Informed consent was obtained risks and benefits of the procedure were discussed at length. Risks including bleeding infection damage to the surrounding tissue and risk of reoperation were discussed with the patient. Risk of anesthesia up to and including was a discussed with the patient. These are outlined in the risk review. They were willing to accept these risks and all of the risks of surgery. The patient was given a weight- based dose of antibiotics in the form of 2 g Ancef. The patient was seen and ev aluated by the anesthesia team who deemed them fit for surgery. The site was marked, the patient was willing to proceed with the procedure. The patient was transferred to the operative suite by the Department of anesthesia. They were then drifted off to sleep by the department anesthesia and GETAwas performed. The patient tolerated this well. [Mejia catheter was placed by nursing staff, atraumatically]. Once confirmation of lines and ventilation the patient was transferred to a supine flat top trios table. Shoulder roll was placed and shoulders gently taped to table. All bony prominences including wrists, elbows, axilla, chest, hips, and thighs, and feet were padded very well. Special attention was paid to the genitalia and these were padded accordingly. SCDs were placed on bilateral lower extremities and were connected. Arms were well padded and placed [on arm boards up and out in the 90/90 position]. Once in position, again we confirmed good ventilation capabilities and that lines were running appropriately. The patient's anterior cervical spine was then exposed. 1010s were placed outlining the incision site. Standard alcohol was used to clean the incision site and allowed to dry. C-arm was used to biomark the patient and confirm level for incision which was marked with a skin marker. Operative briefing was performed with all teams and everyone in agreement to proceed. The patient was then prepped and draped in a normal sterile fashion. Timeout was then performed and all parties were in agreement with the procedure to be performed. 4 cm incision was made on the right side of the pts neck transverse and a standard [place] approach to the anterior cervical spine was performed. Levels were identified with lateral xray and a blunt probe and then marked. [place] pins were placed into C6 and C7 bodies and gentle distraction taken out. Microscope was brought in for visualization. Subperiosteal dissection was done of the longissimus muscles to visualize uncovertebral joints b/l. Complete discectomy was performed using high speed mona, rongures, curette and kerrisons. PLL was identified and resected using 6-0 upbiting curette and 2 kerrison. B/l foraminotomies were performed using kerrison. Meticulous hemostasis was then achieved. The wound was irrigated. mona was used to removed osteophytes posteriorly. Under lateral imaging the space was sized with trial implants. Once appropriate size was achieved, the final implant was selected, packed with graft and impacted into place under lateral image. Motors before and after remained stable. The implant was stable. Arlington pin was then removed from C7 and bone wax placed in its void. We then repeated this process at C5-6 and then C4-5 respectively. Complete discectomies at each level along with PLL resection, b/l foraminotomies and decompression. Cages were placed under imaging and IONM remained stable the entire case. All remained stable. Arlington pins were removed and bone wax placed in their void. Meticulous hemostasis was achieved at each level. A separate 3 level plate was then selected and placed over the space and secured with screws. The locking mechanism was set for the plate at each level. Once complete, final images showed good placement of hardware C4-7 with good alignment and height resotration as well as decompression. The wound was copiously irrigated with NSS. Surgicel placed deep. A deep drain was placed and secured to the skin. The incision was then closed in a layered fashion first in the Platysmal layer with 3-0 vicryl followed by subq. 4-0 stratafix was placed in the subcuticular layer and glue placed on the skin. Once dry, the wound was covered with an opifoam dressing, 4x4 and tegaderm. The patient was placed in a soft collar. The patient was transferred back to their hospital bed atraumatically. Drain continued to hold suction and were in good position. Patient was then awakened and extubated by the department of anesthesia having tolerated the procedure very well with no complications. They were transferred to the postoperative care unit in stable condition.
== END 2022-04-17 12:00 | disposition home health service (06) ==
LOC: OR 09:59 → 5NMEDONC 16:50 → OR 04-17 12:00
PROVIDERS: ATTEND Orthopaedic Surgery
DX: M48.02 Spinal stenosis, cervical region (principal); M47.812 Spondylosis without myelopathy or radiculopathy, cervical region; F17.210 Nicotine dependence, cigarettes, uncomplicated; F10.90 Alcohol use, unspecified, uncomplicated; Z79.899 Other long term (current) drug therapy
CPT/HCPCS: 97161; 86900; 86901; 80048; 85025; 86850; 72040; 72125; 22551; 22552; 22845; 22853; 20937; L0120; C1713; J2250; J0330; J0360; J1100; J0690 ×2; J2405; J3010; J2704; J2001